=== PATIENT | male | born 1975 | race African-American/Black ===

== ENCOUNTER 2019-09-02 08:39 | Emergency (ER) | payer OTHER ==
[2019-09-02] MEDS ORDERED: ACETAMINOPHEN EXTRA STRENGTH 500 MG TABLET ONE (10:06)
[2019-09-02] MEDS ORDERED: DOXYCYCLINE HYCLATE 100 MG TABLET PO ONE (10:06)
== END 2019-09-02 10:27 | disposition home or self-care (01) ==
LOC: EDH 08:39
DX: L03.213 Periorbital cellulitis (principal); Z88.0 Allergy status to penicillin; Z72.0 Tobacco use